=== PATIENT | male | born 1995 | race Caucasian/White ===

== ENCOUNTER 2019-09-15 20:48 | Emergency (ER) | payer OTHER, SELFPAY ==
[2019-09-15 21:03] VITALS: BP 129/68; PULSE 90; RESP 16; TEMP 37.1; O2SAT 99
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
[2019-09-15 21:42] VITALS: BP 125/66; PULSE 86; RESP 16; O2SAT 99
== END 2019-09-15 21:46 | disposition home or self-care (01) ==
LOC: CHSED 20:54
PROVIDERS: Emergency Provider Family Medicine
DX: S20.212A Contusion of left front wall of thorax, initial encounter (principal); S16.1XXA Strain of muscle, fascia and tendon at neck level, initial encounter; V89.2XXA Person injured in unspecified motor-vehicle accident, traffic, initial encounter
CPT/HCPCS: 99282